=== PATIENT | male | born 1930 | race Caucasian/White ===

== ENCOUNTER 2017-05-02 19:15 | Emergency (ER) | payer MEDICARE, OTHER ==
[~2017-05-02] VITALS: Ht 177.8 cm; Wt 70.3 kg
[~2017-05-02 19:15] MED LIST: OXYC-128 PO; THYROID PO
[2017-05-02] MEDS ORDERED: AMOXICILLIN 500 MG CAPSULE (19:31)
[2017-05-02] MEDS ORDERED: LEVOTHYROXINE 88 MCG TABLET (19:31)
[2017-05-02] MEDS ORDERED: TIMOLOL 0.5% (19:31)
[2017-05-02 20:07] LABS: *BILIRUBIN,URIN NEGATIVE (NEGATIVE); *BLOOD, URINE 3+ (NEGATIVE); *CLARITY,URINE CLOUDY (CLEAR); *COLOR,URINE YELLOW (YELLOW); *KETONES,URINE NEGATIVE (NEGATIVE); *PROTEIN,URINE 1+ (NEGATIVE); *UROBILINOGEN,URINE 0.2 E.U./dl (NORMAL); LEUKOCYTE ESTERASE ,URINE NEGATIVE (NEGATIVE); NITRITE, URINE NEGATIVE (NEGATIVE); UGLUCOSE NEGATIVE (NEGATIVE)
[2017-05-02 20:15] LABS: BACTERIA,URINE NONE SEEN /HPF (NONE SEEN); RBC,URINE TNTC /HPF (0-3); SQUAMOUS EPITHELIAL CELL,UR FEW /HPF (NONE SEEN)
--- NOTE | 2017-05-02 21:15 | NUR ---
Patient discharged to home in stable conditon. Written and verbal after care instructions given. Patient verbalizes understanding of instructions.
== END 2017-05-02 21:17 | disposition home or self-care (01) ==
LOC: ER 19:16
DX: R31.0 Gross hematuria (principal); Z88.1 Allergy status to other antibiotic agents
CPT/HCPCS: 74176; 81001; 87086; 99285; A4663

== ENCOUNTER 2017-10-31 10:00 | Inpatient (IN) | payer MEDICARE, OTHER ==
[~2017-10-31] VITALS: Ht 179.1 cm; Wt 65.8 kg
[~2017-10-31 10:00] MED LIST changes: +AMOXICILLIN 500 MG CAPSULE; +LEVOTHYROXINE 88 MCG TABLET; -OXYC-128 PO; -THYROID PO; +TIMOLOL 0.5%
[2017-10-31] MEDS ORDERED: LATANOPROST 0.005% EYE DROPS (10:13)
[2017-10-31] MEDS ORDERED: ZOLPIDEM TARTRATE 10 MG TABLET (10:13)
[2017-10-31] MEDS ORDERED: PREDNISOLONE AC 1% EYE DROP (10:13)
[2017-10-31] MEDS ORDERED: DORZ10DR13 OP (10:16)
[2017-10-31] MEDS ORDERED: PRED5DRO4 OP (10:16)
[2017-10-31] MEDS ORDERED: IV NORMAL SALINE 1000 ML BAG IV ONE ×2 (10:30→12:45)
[2017-10-31] MEDS ORDERED: diphenhydrAMINE 50 MG/1 ML VIAL IV ONE (10:45)
[2017-10-31] MEDS ORDERED: diphenhydrAMINE 50 MG/1 ML VIAL ONE (10:45)
--- NOTE | 2017-10-31 10:45 | NUR ---
PT IS IN ROOM #2A. DR RAHMAN EVALUATED THE PT.
[2017-10-31 10:50] LABS: *BILIRUBIN,URIN NEGATIVE (NEGATIVE); *BLOOD, URINE 1+ (NEGATIVE); *CLARITY,URINE CLEAR (CLEAR); *COLOR,URINE YELLOW (YELLOW); *KETONES,URINE 1+ (NEGATIVE); *PROTEIN,URINE NEGATIVE (NEGATIVE); *UROBILINOGEN,URINE 0.2 E.U./dl (NORMAL); BASOPHILS % (AUTO) 0.5 % (0.0-2.0); EOSINOPHILS % (AUTO) 0.5 % (0.0-7.0); HEMOGLOBIN 13.8 g/dL (12.5-16.3); LEUKOCYTE ESTERASE ,URINE NEGATIVE (NEGATIVE); LYMPHOCYTES # (AUTO) 1.1 K/uL (20.0-40.0); LYMPHOCYTES % (AUTO) 12.5 % (20.5-51.5); MEAN CORPUSCULAR HEMOGLOBIN 32.2 uug (23.8-33.4); MEAN CORPUSCULAR HGB CONC 35 g/dL (32.5-36.3); MEAN CORPUSCULAR VOLUME 93.3 fL (73.0-96.2); MONOCYTES # (AUTO) 0.6 K/uL (2.0-10.0); MONOCYTES % (AUTO) 6.7 % (0.0-11.0); NEUTROPHILS # (AUTO) 6.8 K/uL (1.8-8.9); NEUTROPHILS % (AUTO) 79.8 % (38.5-71.5); NITRITE, URINE NEGATIVE (NEGATIVE); PH,URINE 5.5 (5.0-8.0); PLATELET COUNT (AUTO) 175 K/uL (152-348); RED BLOOD CELL COUNT(AUTO) 4.29 MIL/uL (4.06-5.63); UGLUCOSE NEGATIVE (NEGATIVE); WHITE BLOOD COUNT (AUTO) 8.6 K/uL (3.6-10.2)
[2017-10-31 10:57] LABS: CARBON DIOXIDE 29 mmol/L (21-32); CHLORIDE 106 mmol/L (98-107); CREATININE 0.9 mg/dL (0.6-1.3); GLUCOSE 96 mg/dL (74-106); UREA NITROGEN, BLOOD 14 mg/dL (7-18)
[2017-10-31 11:03] LABS: ALANINE AMINOTRANSFERASE 25 U/L (16-63); ALKALINE PHOSPHATASE 47 U/L (50-136); ASPARTATE AMINOTRANSFERASE 19 U/L (15-37); BILIRUBIN,DIRECT 0.2 mg/dL (0.0-0.2); BILIRUBIN,TOTAL 1.1 mg/dL (0.2-1.0); LIPASE 173 U/L (73-393); TOTAL PROTEIN, SERUM 6.9 g/dL (6.4-8.2)
[2017-10-31 11:04] LABS: BACTERIA,URINE NONE SEEN /HPF (NONE SEEN); SQUAMOUS EPITHELIAL CELL,UR FEW /HPF (NONE SEEN); WBC,URINE 0-3 /HPF (0-3)
[2017-10-31] MEDS ORDERED: MORPHINE SULFATE 4 MG/1 ML DISP.SYRIN ONE ×3 (11:23→12:55)
[2017-10-31] MEDS ORDERED: ONDANSETRON 4 MG/2 ML VIAL ONE (11:24)
[2017-10-31] MEDS ORDERED: MORPHINE SULFATE 2 MG/1 ML DISP.SYRIN IV ONE (11:30)
[2017-10-31] MEDS ORDERED: ONDANSETRON 4 MG/2 ML VIAL IV ONE (11:30)
[2017-10-31] MEDS ORDERED: TAMSULOSIN HCL 0.4 MG CAP.SR.24H PO ONE (12:00)
[2017-10-31] MEDS ORDERED: MORPHINE SULFATE 4 MG/1 ML DISP.SYRIN IV ONE ×2 (12:00→12:45)
[2017-10-31] MEDS ORDERED: TAMSULOSIN HCL 0.4 MG CAP.SR.24H ONE (12:09)
--- NOTE | 2017-10-31 14:10 | NUR ---
RECEIVED PATIENT FROM ER VIA GURNEY TO ROOM 217, A AND O X 4, NO ACUTE DISTRESS NOTED. AMBULATORY AND INDEPENDENT WITH ADLS. STATES ABDOMINAL PAIN HAS GOTTEN BETTER AFTER MORPHINE 4 MG GIVEN IN THE ER, PAIN AT 4/10 AT THE MOMENT. VITAL SIGNS WNL ADMISSION ASSESSMENTS TO BE DONE. NOTIFIED ALTAGRACIA REID DNP THAT PATIENT ARRIVED AND IN ROOM. CALL LIGHT WITHIN REACH. WILL CONTINUE TO MONITOR CLOSELY.
--- NOTE | 2017-10-31 14:10 | NUR ---
PT WAS TRANSFERED TO ROOM #217. REPORT WAS GIVEN TO RN M/S.
[2017-10-31 15:10] VITALS: BP 146/62
[2017-10-31] MEDS ORDERED: ONDANSETRON 4 MG/2 ML VIAL IV PRN (15:15)
[2017-10-31] MEDS ORDERED: ZOLPIDEM 5 MG TABLET PO PRN (15:15)
[2017-10-31] MEDS ORDERED: MORPHINE SULFATE 2 MG/1 ML DISP.SYRIN IV PRN (15:15)
[2017-10-31] MEDS ORDERED: Z GUARD REMEDY PASTE 57 GM TUBE TOP PRN (15:15)
[2017-10-31] MEDS ORDERED: ACETAMINOPHEN 325 MG TABLET PO PRN (15:15)
[2017-10-31] MEDS: IV NS 1000 ML 1,000 ML IV PRN (16:43)
[2017-10-31] MEDS: PATIENT'S OWN MED OP SCH (16:47)
--- NOTE | 2017-10-31 17:09 | NUR ---
PATIENT IN STABLE CONDITION, DAUGHTER AND AT BEDSIDE. IV ACCESS ON THE LEFT AC #20 INTACT AND PATENT, STARTED IVF NS @ 75 CC/HR. STATED ABDOMINAL PAIN HAS GOTTEN BETTER, PAIN LEVEL STILL AT 4/10. COMFORT MEASURES PROVIDED. CALL LIGHT WITHIN REACH WILL CONTINUE TO MONITOR CLOSELY.
[2017-10-31] MEDS: prednisoLONE ACET 1% OPHT DROP 5 ML BOTTLE RIGHTEYE SCH (17:20)
--- NOTE | 2017-10-31 19:45 | NUR ---
RECEIVED PATIENT IN BED ALERT ORIENTED, NO SOB NO CHEST PAIN, NO COMPLAIN OF PAIN AT THIS TIME. CONTINENT OF BLADDER, ASSISTED WITH TOILETING, CALL LIGHT WITHIN REACH.
[2017-10-31 20:14] VITALS: BP 123/51
[2017-10-31] MEDS: LATANOPROST OPHT DROP 2.5 ML BOTTLE EACHEYE SCH (20:30)
[2017-10-31] MEDS ORDERED: ZOLPIDEM 5 MG TABLET PO SCH (21:00)
[2017-10-31] MEDS: MORPHINE SULFATE 4 MG/1 ML DISP.SYRIN IV PRN (21:50)
[2017-11-01] MEDS: MORPHINE SULFATE 4 MG/1 ML DISP.SYRIN IV PRN (03:54)
[2017-11-01 05:26] VITALS: BP 141/61
[2017-11-01] MEDS: LEVOTHYROXINE SODIUM 88 MCG TABLET PO SCH (06:08)
[2017-11-01] MEDS: IV NS 1000 ML 1,000 ML IV PRN ×2 (06:18→20:23)
[2017-11-01 07:10] LABS: ALANINE AMINOTRANSFERASE 19 U/L (16-63); ALKALINE PHOSPHATASE 40 U/L (50-136); ASPARTATE AMINOTRANSFERASE 20 U/L (15-37); BILIRUBIN,TOTAL 0.5 mg/dL (0.2-1.0); CARBON DIOXIDE 26 mmol/L (21-32); CHLORIDE 107 mmol/L (98-107); CHOLESTEROL 170 mg/dL (<200); CREATININE 0.9 mg/dL (0.6-1.3); GLUCOSE 95 mg/dL (74-106); HDL CHOLESTEROL 58 mg/dL (40-60); MAGNESIUM 1.8 mg/dL (1.8-2.4); PHOSPHOROUS 3.1 mg/dL (2.5-4.9); POTASSIUM 3.5 mmol/L (3.5-5.1); TOTAL PROTEIN, SERUM 5.6 g/dL (6.4-8.2); TRIGLYCERIDES 56 MG/DL (30-150); UREA NITROGEN, BLOOD 15 mg/dL (7-18)
[2017-11-01 07:18] LABS: BASOPHILS % (AUTO) 0.5 % (0.0-2.0); EOSINOPHILS # (AUTO) 0.1 K/uL (0.0-0.7); EOSINOPHILS % (AUTO) 1.2 % (0.0-7.0); HEMATOCRIT 37.8 % (36.7-47.1); LYMPHOCYTES # (AUTO) 0.9 K/uL (20.0-40.0); LYMPHOCYTES % (AUTO) 11.6 % (20.5-51.5); MEAN CORPUSCULAR HEMOGLOBIN 32.2 uug (23.8-33.4); MEAN CORPUSCULAR HGB CONC 34 g/dL (32.5-36.3); MEAN CORPUSCULAR VOLUME 93.8 fL (73.0-96.2); MONOCYTES # (AUTO) 0.6 K/uL (2.0-10.0); MONOCYTES % (AUTO) 8.3 % (0.0-11.0); NEUTROPHILS # (AUTO) 6.2 K/uL (1.8-8.9); NEUTROPHILS % (AUTO) 78.4 % (38.5-71.5); PLATELET COUNT (AUTO) 148 K/uL (152-348); RED BLOOD CELL COUNT(AUTO) 4.03 MIL/uL (4.06-5.63); WHITE BLOOD COUNT (AUTO) 7.9 K/uL (3.6-10.2)
--- NOTE | 2017-11-01 07:40 | NUR ---
RECEIVED PATIENT IN ROOM AWAKE ALERT AND ORIENTED DENIES PAIN OR DISCOMFORTS AT THIS TIME.REMAIN ON IVF ORDERED.MADE COMFORTABLE AND WILL CONTINUE TO OBSERVE.
[2017-11-01] MEDS: prednisoLONE ACET 1% OPHT DROP 5 ML BOTTLE RIGHTEYE SCH ×3 (08:33→17:33)
[2017-11-01] MEDS: PATIENT'S OWN MED OP SCH (08:34)
[2017-11-01] MEDS ORDERED: prednisoLONE ACET 1% OPHT DROP 5 ML BOTTLE EACHEYE SCH (09:00)
--- NOTE | 2017-11-01 11:15 | NUR ---
PATIENT CONTINUES TO DENY PAIN OR DISCOMFORTS AT THIS TIME USES URINAL AND URINE STRAINED AND EDUCATED TO CONTINUE TO USE URINAL IN OTHER FOR US TO BE ABLE TO STRAIN HIS URINE TO ENSURE IS HE PASSED THE STONE AND HE EXPRESSED UNDERSTANDING.
[2017-11-01 11:36] VITALS: BP 137/57
[2017-11-01 15:34] VITALS: BP 133/65
[2017-11-01] MEDS: PATIENT'S OWN MED EACHEYE SCH (17:35)
--- NOTE | 2017-11-01 18:56 | NUR ---
NEW ORDERS NOTED FROM DR ALTAGRACIA REID TO CALL AND REMIND DR PACE TO SEE PATIENT CALLED DR SANJEEV SALAZAR STATED THAT HE WAS NOT AWARE OF THIS PATIENTS ADMISSION STATED THAT THE ER DOCTOR GAVE HIM THE IMPRESSION THAT THE PATIENT MIGHT GO HOME FROM THE ED STATED WILL CALL DR ALTAGRACIA REID AND WILL DECIDE ON NEXT PLAN OF CARE BECAUSE HE IS NOT ABLE TO SEE THE PATIENT TODAY.ENDORSED
--- NOTE | 2017-11-01 19:30 | NUR ---
Received patient sitting comfortably in bed. No acute distress noted. is on the phone with Dr. Weaver discussing patient's status. A/O x 4. No c/o pain or SOB. Steady gait. IVF infusing on left AC. Safety initiated. Call light within reach. Bed in low and locked position. Room is kept clutter free.
[2017-11-01 20:15] VITALS: BP 150/55
[2017-11-01] MEDS: LATANOPROST OPHT DROP 2.5 ML BOTTLE EACHEYE SCH (20:22)
[2017-11-01] MEDS ORDERED: TAMSULOSIN HCL 0.4 MG CAP.SR.24H PO SCH (21:00)
[2017-11-02 04:35] VITALS: BP 145/63
--- NOTE | 2017-11-02 05:24 | NUR ---
Patient slept t/o shift. No acute distress noted. No c/o pain. Remains A/O x 3. Good urine output. Staining urine, no stone. IVF infusing. VSS. All meds given with no adverse effects. Safety and comfort measures maintained t/o shift. All needs met. Room is kept clutter free. Bed is on low and locked position.
[2017-11-02] MEDS: LEVOTHYROXINE SODIUM 88 MCG TABLET PO SCH (06:02)
[2017-11-02 07:11] LABS: BASOPHILS % (AUTO) 0.7 % (0.0-2.0); EOSINOPHILS # (AUTO) 0.1 K/uL (0.0-0.7); EOSINOPHILS % (AUTO) 2.3 % (0.0-7.0); HEMATOCRIT 34.4 % (36.7-47.1); HEMOGLOBIN 12.1 g/dL (12.5-16.3); LYMPHOCYTES # (AUTO) 1.1 K/uL (20.0-40.0); LYMPHOCYTES % (AUTO) 20.1 % (20.5-51.5); MEAN CORPUSCULAR HEMOGLOBIN 32.6 uug (23.8-33.4); MEAN CORPUSCULAR HGB CONC 35 g/dL (32.5-36.3); MEAN CORPUSCULAR VOLUME 92.7 fL (73.0-96.2); MONOCYTES # (AUTO) 0.4 K/uL (2.0-10.0); MONOCYTES % (AUTO) 7.6 % (0.0-11.0); NEUTROPHILS # (AUTO) 3.8 K/uL (1.8-8.9); NEUTROPHILS % (AUTO) 69.3 % (38.5-71.5); PLATELET COUNT (AUTO) 138 K/uL (152-348); RED BLOOD CELL COUNT(AUTO) 3.71 MIL/uL (4.06-5.63)
[2017-11-02 07:19] LABS: CARBON DIOXIDE 27 mmol/L (21-32); CHLORIDE 108 mmol/L (98-107); CREATININE 0.7 mg/dL (0.6-1.3); GLUCOSE 102 mg/dL (74-106); MAGNESIUM 1.8 mg/dL (1.8-2.4); PHOSPHOROUS 2.8 mg/dL (2.5-4.9); POTASSIUM 3.5 mmol/L (3.5-5.1); UREA NITROGEN, BLOOD 7 mg/dL (7-18)
[2017-11-02 07:24] LABS: WHITE BLOOD COUNT (AUTO) 5.4 K/uL (3.6-10.2)
--- NOTE | 2017-11-02 07:36 | NUR ---
AWAKE ALERT AND ORIENTED STATED CROW NOT SLEEP MUCH LAST NITE REMAIN ON IVF ORDERED WITH NO S/S OF INFILTERATION ON SITE CONTINUE TO STRAIN URINE WITH NO STONES SEEN URINE OUTPUT HAS BEEN ADEQUATE DENIES PAIN OR DISCOMFORTS AT THIS TIME DISCHARGE PLANNING TODAY AND WILL CONTINUE TO OBSERVE
[2017-11-02] MEDS: prednisoLONE ACET 1% OPHT DROP 5 ML BOTTLE RIGHTEYE SCH (08:59)
[2017-11-02] MEDS: PATIENT'S OWN MED EACHEYE SCH (09:00)
[2017-11-02] MEDS ORDERED: TAMS-3 PO (09:50)
[2017-11-02] MEDS ORDERED: HYDR-548 PO (09:51)
--- NOTE | 2017-11-02 10:36 | NUR ---
PATIENT SEEN AND EXAMINED BY DR ALTAGRACIA REID WITH ORDER TO DISCHARGE PATIENT HOME TODAY AND TO FOLLOW UP WITH DR PACE TODAY PATIENT AWARE AND IS AWAITING FOR HIS SPOUSE
--- NOTE | 2017-11-02 11:00 | NUR ---
PATIENT DISCHARGED PICKED UP BY HIS [facility] IN SATISFACTORY CONDITION WITH DISCHARGE INSTRUCTIONS AND PRESCRIPTIONS AND CDS OF ALL THE PROCEDURES AND TESTS AND TO FOLLOW UP WITH DR PACE TODAY AND THEY BOTH EXPRESSED UNDERSTAND.
== END 2017-11-02 11:00 | disposition home or self-care (01) | DRG 694 ==
LOC: ER 10:02 → MED 13:50
PROVIDERS: ADMIT Nurse Practitioner Acute Care; ATTEND Nurse Practitioner Acute Care
DX: N13.2 Hydronephrosis with renal and ureteral calculous obstruction (principal); K86.1 Other chronic pancreatitis; E06.3 Autoimmune thyroiditis; H40.9 Unspecified glaucoma; H91.90 Unspecified hearing loss, unspecified ear; Z90.79 Acquired absence of other genital organ(s); N36.8 Other specified disorders of urethra; T81.89XS Other complications of procedures, not elsewhere classified, sequela; N40.0 Benign prostatic hyperplasia without lower urinary tract symptoms; K57.90 Diverticulosis of intestine, part unspecified, without perforation or abscess without bleeding
CPT/HCPCS: 36415; 70030-TC; 71045; 83690; 83735; 84100; 84153; 85025; 85730; 93005; A4663; J1200; J2270; J2405; J2650; J7030

== ENCOUNTER 2018-10-27 21:32 | Emergency (ER) | payer MEDICARE, OTHER ==
[~2018-10-27] VITALS: Ht 177.8 cm; Wt 65.8 kg
[~2018-10-27 21:32] MED LIST changes: -AMOXICILLIN 500 MG CAPSULE; +DORZ10DR13 OP; +HYDR-4354 PO; +LATANOPROST 0.005% EYE DROPS; +PRED5DRO4 OP; +PREDNISOLONE AC 1% EYE DROP; +TAMS-3 PO; +ZOLPIDEM TARTRATE 10 MG TABLET
[2018-10-27] MEDS ORDERED: IV NORMAL SALINE 1000 ML BAG IV ONE (22:30)
[2018-10-27 22:38] LABS: BASOPHILS % (AUTO) 0.3 % (0.0-2.0); EOSINOPHILS % (AUTO) 0.1 % (0.0-7.0); HEMATOCRIT 38.7 % (36.7-47.1); HEMOGLOBIN 13.1 g/dL (12.5-16.3); LYMPHOCYTES # (AUTO) 0.6 K/uL (20.0-40.0); LYMPHOCYTES % (AUTO) 5.2 % (20.5-51.5); MEAN CORPUSCULAR HEMOGLOBIN 31.1 uug (23.8-33.4); MEAN CORPUSCULAR HGB CONC 34 g/dL (32.5-36.3); MONOCYTES # (AUTO) 0.4 K/uL (2.0-10.0); MONOCYTES % (AUTO) 3.6 % (0.0-11.0); NEUTROPHILS # (AUTO) 11.1 K/uL (1.8-8.9); NEUTROPHILS % (AUTO) 90.8 % (38.5-71.5); PLATELET COUNT (AUTO) 161 K/uL (152-348); RED BLOOD CELL COUNT(AUTO) 4.21 MIL/uL (4.06-5.63); WHITE BLOOD COUNT (AUTO) 12.2 K/uL (3.6-10.2)
[2018-10-27 22:46] LABS: CARBON DIOXIDE 26 mmol/L (21-32); CHLORIDE 102 mmol/L (98-107); CREATININE 0.9 mg/dL (0.6-1.3); GLUCOSE 143 mg/dL (74-106); POTASSIUM 3.9 mmol/L (3.5-5.1); UREA NITROGEN, BLOOD 18 mg/dL (7-18)
--- NOTE | 2018-10-27 22:50 | NUR ---
Pt out of ER for CT.
[2018-10-27 22:52] LABS: ALANINE AMINOTRANSFERASE 25 U/L (16-63); ALKALINE PHOSPHATASE 42 U/L (50-136); ASPARTATE AMINOTRANSFERASE 14 U/L (15-37); BILIRUBIN,DIRECT 0.2 mg/dL (0.0-0.2); BILIRUBIN,TOTAL 0.9 mg/dL (0.2-1.0); LIPASE 79 U/L (73-393); TOTAL PROTEIN, SERUM 6.8 g/dL (6.4-8.2)
--- NOTE | 2018-10-27 23:04 | NUR ---
Pt back to ER from CT
--- NOTE | 2018-10-27 23:48 | NUR ---
Pt provided urine sample, sent to lab.
[2018-10-28 00:03] LABS: *BILIRUBIN,URIN NEGATIVE (NEGATIVE); *BLOOD, URINE 1+ (NEGATIVE); *CLARITY,URINE CLEAR (CLEAR); *COLOR,URINE YELLOW (YELLOW); *KETONES,URINE 2+ (NEGATIVE); *UROBILINOGEN,URINE 0.2 E.U./dl (NORMAL); LEUKOCYTE ESTERASE ,URINE NEGATIVE (NEGATIVE); NITRITE, URINE NEGATIVE (NEGATIVE); PH,URINE 5.5 (5.0-8.0); UGLUCOSE NEGATIVE (NEGATIVE)
[2018-10-28 00:13] LABS: MUCUS,URINE MODERATE /LPF (0-FEW); SQUAMOUS EPITHELIAL CELL,UR FEW /HPF (NONE SEEN)
[2018-10-28] MEDS ORDERED: CIPROFLOXACIN HCL 250 MG TABLET ONE (01:24)
[2018-10-28] MEDS ORDERED: METRONIDAZOLE 500 MG TABLET ONE (01:24)
--- NOTE | 2018-10-28 01:28 | NUR ---
Patient discharged to home in stable conditon. Written and verbal after care instructions given. Patient verbalizes understanding of instructions. Pt ambulated out of ER with steady gait, no acute signs of distress, all belongings taken, IV site discontinued, provided with a CD and copy of labs and CT procedure results.
[2018-10-28 01:29] VITALS: BP 130/71
[2018-10-28] MEDS ORDERED: METRONIDAZOLE 500 MG TABLET PO ONE (01:30)
[2018-10-28] MEDS ORDERED: CIPROFLOXACIN HCL 250 MG TABLET PO ONE (01:30)
== END 2018-10-28 01:30 | disposition home or self-care (01) ==
LOC: ER 21:34
DX: K57.32 Diverticulitis of large intestine without perforation or abscess without bleeding (principal); E03.9 Hypothyroidism, unspecified; Z88.8 Allergy status to other drugs, medicaments and biological substances; Z79.891 Long term (current) use of opiate analgesic; Z79.899 Other long term (current) drug therapy; Z90.49 Acquired absence of other specified parts of digestive tract
CPT/HCPCS: 36415; 70030-TC; 83690; 85025; 93005; A4663; J7030